=== PATIENT | male | born 1965 | race Caucasian/White ===

== ENCOUNTER 2022-09-10 00:40 | Day surgery (SDC) | payer OTHER, SELFPAY ==
[2022-09-02 12:44] VITALS: BMI 25.4
--- NOTE | 2022-09-02 12:46 | PC.NURSE ---
Report to the Outpatient Waiting Room, entrance under the green pavilion located off [facility], at time _0630_ on date _09-10-2022_. Planned Procedure Time: _0830_. Time changes happen often and if your time is changed the preop area will call you the afternoon before. - You and your visitor will be asked to self-screen and do not enter if you have any COVID symptoms. - A mask is optional within the hospital at this time. Patients may have clear liquids (water, carbonated beverages, clear teas, apple juice) until 3 hours prior to surgery with a maximum of 20 ounces. - No food from midnight until time of surgery Take the following medications with a SIP of water the morning of surgery: ___None DO NOT STOP ANY OF YOUR OTHER PRESCRIPTION MEDICATIONS PRIOR TO SURGERY ?EXCEPT THE FOLLOWING Medications to discontinue per physician None Date to take last dose Please no make-up, nail bangladeshi, hairspray, perfume, deodorant, or body powder the day of surgery. No jewelry (including any body piercings) or valuables the day of surgery, leave them at home. Please take a shower or bath the night before, or the morning of, surgery with an antibacterial soap. Wear comfortable, loose fitting clothing. - Jewelry must be removed prior to entering the operating room. Rings and piercings that are not removed may be cut off. - The hospital will not accept responsibility for valuables. - Please leave all valuables, including medications, at home the day of surgery. If you are going home after surgery, a licensed fuel truck driver must drive you home. - NO public transportation without another adult if you receive anesthesia. - We recommend that an adult stay with you for 24 hours following discharge. - We also recommend that you do not drive, make important decision, drink alcoholic beverages, or take any drugs that were not prescribed by your health care provider for at least 24 hours after your discharge time. Follow any additional instructions given to you from your surgeon. If you or anyone in your household have experienced Covid symptoms in the past week, please notify your surgeon or the nurse liaison at the phone number below for possible testing. Telephone instructions given to _Patient__and asked if any additional questions and then verbalized understanding. Patient advised to call surgeon office or pre surgery nurse liaison [phone] if any additional questions.
[2022-09-10] VITALS (10 sets, daily range): BP systolic 113–145; BP diastolic 76–88; PULSE 53–68; RESP 12–16; TEMP 36.6; O2SAT 97–100
[2022-09-10] MEDS: LACTATED RINGERS 1,000 ML 30 ML IV CONT ×3 (07:00→12:15)
--- NOTE | 2022-09-10 07:21 | WPDHPUPDATE1 ---
History and Physical Update Update Date/Time: 09/10/22 07:21 History and Physical has been reviewed, including an updated exam of the patient. There are NO changes in the patient's condition. Risks, benefits, and alternatives have been discussed and questions answered. Patient agrees to proceed with procedure.
[2022-09-10] MEDS: ACETAMINOPHEN 500 MG TABLET 1000 MG PO (07:26)
[2022-09-10] MEDS: KETOROLAC 15 MG/ML VIAL (*BKC) IV PUSH (07:28)
--- NOTE | 2022-09-10 08:01 | P.PNAN_ITS ---
Anes - Initial Pre Proc Eval Procedure: Operation Date: 09/10/22 08:30 Proposed Procedures p Laparoscopic Right Inguinal Hernia Repair with Mesh, Davinci Assisted - Chuy Looney DO Date/Time: 09/10/22 08:01 Surgeon: Chuy Looney DO Pre Op Diagnosis: Rt Ing Hernia Patient Data Age: 57 Gender: M Height: 1.78 m Weight: 78.7 kg Last Vital Signs Temp 36.6 C 09/10/22 07:18 Pulse 60 09/10/22 07:18 Resp 16 09/10/22 07:18 BP 113/76 09/10/22 07:18 Pulse Ox 98 09/10/22 07:18 O2 Del Method Room Air 09/10/22 07:18 Allergies Allergy/AdvReac Type Severity Reaction Status Date / Time doxycycline Allergy Mild tinnitus Verified 09/10/22 06:55 Home Medications Medication Instructions Recorded Confirmed Type chlorhexidine gluconate 4 % See Rx Instructions .Route 09/09/22 Rx topical liquid (Hibiclens) .COMPLEX #118 mL Laboratory Tests 09/10/22 07:09 Blood Type O Positive Antibody Screen Pending Patient hx anesthesia problems: none Family hx anesthesia problems: none Results Review: All pre-operative results and documents have been reviewed as part of the pre- operative evaluation. [facility] Surgical History Surgical History (Updated 08/20/22 @ 14:18 by EDGAR Benedict) Acoustic neuroma 2010 H/O lateral meniscus repair of left knee x3 Family History Family History (Updated 08/20/22 @ 14:19 by EDGAR Benedict) Other Cerebrovascular accident Hypertension Social History Social History (Updated 08/20/22 @ 14:19 by EDGAR Benedict) Smoking status: Never smoker Tobacco type: cigars Alcohol intake: current Drinks per week: 2 Alcohol use details: [place] Substance use: never Living arrangements: with family Spiritual care concerns: No Anes - Eval Final PreProcedure Day of Procedure 09/10/22 08:01 Patient weight: normal Heart: regular rate and rhythm Lungs: clear to auscultation Airway: Mallampati scale class II Neurological: alert and oriented Last oral intake: >/= 8 hours ASA classification: II Emergent: no Anesthetic plan: proceed Anesthesia type and monitoring: general ETT and standard monitoring Results Review: All pre-operative results and documents have been reviewed as part of the pre-operative evaluation. Informed Consent: The patient's anesthetic plan and its attendant risks and benefits were discussed with the patient/family/POA. Questions were solicited and answers provided to the satisfaction of the patient/family/POA.
[2022-09-10] MEDS: ceFAZolin 2 GM/D5W 50 ML 2 GM/50 ML BAG IVPB (08:56)
[2022-09-10] MEDS: BUPIVACAINE/EPINEPHRINE 0.25% 50 ML VIAL 30 ML INFILTRATE (09:26)
--- NOTE | 2022-09-10 10:00 | W.PM.PROC2 ---
Procedure Note - Detailed Date of Procedure 09/10/22 Pre-op Diagnosis Right inguinal hernia Post-op Diagnosis Same Procedure Performed Laparoscopic right inguinal hernia repair with mesh, da Jorge assisted Surgeon Chuy Looney DO Anesthesia General and Local (0.5% bupivacaine with epinephrine) Indications This is a 57-year-old man who presents with a right inguinal bulge that he noticed about 1 month ago. He has some discomfort associated with it but denies any significant pain. He was found to have a reducible right inguinal hernia on physical exam. Discussions were made with the patient about treatment options and decision was made to proceed with robotic assisted laparoscopic right inguinal hernia repair with mesh. Findings Laparoscopic right inguinal hernia repair was performed. The patient was found to have a medium-sized indirect right inguinal hernia. There was no evidence of a left inguinal hernia. A robotic transabdominal preperitoneal approach was utilized for the right inguinal hernia repair. Once a wide enough preperitoneal pocket was created and the hernia sac was reduced, I then placed a large right Bard 3DMax mid mesh overlying the entire right myopectineal orifice. Description of Procedure Procedure as well as risks, benefits, and alternatives were discussed with the patient. Written consent was obtained and placed in chart prior to procedure. Patient was brought back to surgical suite. He was placed supine on operating table. Time-out was done to confirm patient and procedure. He was then intubated by Anesthesia Department. His abdomen was prepped and draped in sterile fashion using chlorhexidine prep. 0.5% bupivacaine with epinephrine was infiltrated at each location for incision. A 12 millimeter transverse incision was made just superior to the umbilicus using a 15 blade scalpel. Blunt dissection was carried out down to the linea alba. A vertical incision was made at the linea alba using a 15 blade scalpel. The peritoneum was then bluntly entered. A 12 millimeter trocar was inserted and carbon dioxide insufflation was used to create a pneumoperitoneum. A camera was inserted and the abdominal cavity was inspected. The patient was placed in slight Trendelenburg position. An 8 millimeter incision was made on the right lateral abdomen and an 8 millimeter trocar was inserted under direct visualization. Another 8 millimeter incision was made in the left lateral abdomen and an 8 millimeter trocar was inserted under direct visualization. The robotic arms were brought up to the patient's bedside and secured to the ports. The camera and instruments were inserted. I then moved over to the robotic console and took control of the camera and instruments. After careful inspection of the abdominal cavity, I began scoring the peritoneum along the right lower quadrant using scissors with electrocautery. The preperitoneal plane was entered and this was carefully dissected caudally along the inferior epigastric vessels. Careful dissection with scissors with electrocautery and blunt dissection was used to continue this dissection. I dissected far enough laterally to allow for mesh placement, and also dissected medially to identify the pubic arch and Ken's ligament. The hernia sac was identified and carefully dissected posteriorly. The cord contents were also identified and the peritoneum was carefully dissected far enough posteriorly to allow for mesh placement. Once an adequate pocket was created, I then placed the mesh within the preperitoneal pocket and carefully unfolded it. The mesh was centered on the hernia defect with adequate overlap circumferentially. The inferior edge of the mesh was inspected to ensure that it was far enough away from the peritoneal edge. The mesh appeared in proper position overlying the entire myopectineal orifice. The mesh was secured using 3-0 Vicryl simple interrupted sutures in Ken's ligament, the sup
[2022-09-10] MEDS: oxyCODONE HCL (*CRX) 5 MG TAB IR PO (11:40)
== END 2022-09-10 13:22 | disposition home or self-care (01) ==
PROVIDERS: PCP Family Medicine; Visit Provider Surgery
PROC: 8E0Y4CZ Robotic Assisted Procedure of Lower Extremity, Percutaneous Endoscopic Approach (ICD-10-PCS; CPT 49650; principal; 2022-09-10 08:30)
DX: K40.90 Unilateral inguinal hernia, without obstruction or gangrene, not specified as recurrent (principal)
CPT/HCPCS: 49650; S2900; 36415; 86850; 86900; 86901; A9270; C1781; J0690; J1100; J1170; J1885; J2250; J2405; J2704; J3010; J7120